=== PATIENT | female | born 1990 | race Caucasian/White ===

== ENCOUNTER 2025-03-28 09:22 | Outpatient (AMB) | payer BC, SELFPAY ==
--- NOTE | 2025-03-28 09:29 | OBCLNT_ITS ---
Vital Signs 03/28/25 09:48 Height 1.63 m Height Method Stated Weight 106.254 kg Weight Measurement Method Standing Scale BMI 40.1 BP 116/78 Blood Pressure Source Automatic Cuff Blood Pressure Location Left Upper Arm Position Sitting Respiration 16 Pulse 79 Pulse Source Monitor Temp 97.1 F Temp Source Oral Pulse Oximetry (%) 98 Oxygen Delivery Method Room Air Allergies/Home Meds Allergies & Medications Allergies NKA* Allergy (Uncoded 03/28/25 09:29) Medication Reconciliation ondansetron HCl 4 mg tablet 4 mg PO Q8H PRN nausea and vomiting #30 tabs 03/28/25 [Rx] vitamins 30 30 mg iron-10 mg iron-folic acid 1 mg-om3 capsule cap PO 03/28/25 [History Confirmed 03/28/25] Intake Visit Data Collection New Patient or Established: New Patient not seen in past 3 years at [facility] (considered New) Reason for Visit:: INITIAL CARE Seen by Clinical Staff ONLY (RN/MA): No 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: No Do You Feel Safe at Home: Yes Authorities Contacted: N/A PCP or OBGYN visit in last 3 months: Yes Hx Now: Yes Are you currently on any form of Control: No Last menstrual period: 01/09/25 Pain Present Currently: No Pain Scale Used: Champagne-Gustafson/Numerical Pain scale:: 0 Smoking Status Smoking Status: Never smoker Immunizations Flu Vaccine in the Last 12 Months: Yes Date of most recent flu vaccination: 01/18/25 Flu Vaccine Exclusion Criteria: Already Received Questionnaires Covid-19 Vaccine Questionnaire Has patient been vacinated for Covid-19 Have you been vacinated for Covid-19: No PHQ-9 PHQ-2 Over the last 2 weeks, how often have you been bothered by any of the following problems? 1. Little interest or pleasure in doing things: not at all 2. Feeling down, depressed, or hopeless: not at all Total score: 0 PHQ-9 3. Trouble falling or staying asleep, or sleeping too much: Not at all 4. Feeling tired or having little energy: Not at all 5. Poor appetite or overeating: Not at all 6. Feeling bad about yourself - or that you are a failure or have let yourself or your family down: Not at all 7. Trouble concentrating on things, such as reading the newspaper or watching television: Not at all 8. Moving or speaking so slowly that other people could have noticed? - Or the opposite - being so fidgety or restless that you have been moving around a lot more than usual: not at all 9. Thoughts that you would be better off or of hurting yourself in some way: Not at all Total score: 0 Source: Developed by Drs. Jesu Mishra, Josey Jackson, Miguel Nguyen and colleagues, with an educational yana from [employer]. Depression screen completed yes Social History Living Situation History Marital Status: Lives With: Family Housing: House Tobacco History Smoking Status: Never smoker Second Hand Smoke Exposure: No Alcohol History Alcohol Intake: Never Domestic Abuse History Do You Feel Safe at Home: Yes History of Present Illness HPI Narrative 35-year-old 3 para 2 for OBI. She has a last menstrual period January 09, 2025. This gives a due date of October 16, 2025. So she is 11 weeks and 1 day today. Her and her partner are here together and they are both very happy about the . Patient denies any health issues. She denies social habits and no surgeries. She is currently taking prenatals. She has some nausea. And she denies any SAB complaints. OB Initial Visit OB Flowsheet OB Flowsheet Initial Weight: Not Recorded Date -?-?--?-?-?-?-?-?-?-?-?-?- EGA Weight BP Alb Glu CTX Pres Fundal ht FHR Mov Dilation Station Effacement Hx Notes Visit Note 03/28/25 -?-?-?-?-?-?-?-?-?-?-?-?- 11w 1d 106.254 kg 116/78 absent unknown 11 145 absent 35-year-old 3 para 2 for OBI today. She is here with her and her family. They are happy about the and excited her last. January 09, 2025. This gives EDC of 06/18/2025. And she denies leaking bleeding or contractions. Schedule at [facility] for anatomy scan. Discussed SAB precautions. We did OB panels today with NIPT and carrier screens. Continue prenatals. I ordered Zofran 4 mg that she can take every 8 hours for the nausea and discussed comfort measures and return in 4 weeks OB check Menstrual History Menstrual reliability: definite Flow: normal Menstrual regularity: regular Monthly: Yes Age at menarche: 12 On control pills at conception: No Associated symptoms (LMP): Reports nausea OB History : 3 Para: 2 # of Living Children: 2 Delivery History 1st : Child's name: VIKAS date: 10/06/06 sex: female Gestational age at delivery (weeks): 40 Delivery type: vaginal Delivery complications: NONE History of depression before or after : No 2nd : Child's name: LEXA date: 03/06/12 sex: male Gestational age at delivery (weeks): 40 Delivery type: vaginal Delivery complications: NONE History of depression before or after : No Infection History & Risk Evaluation History of STDs: none Genetic Screening & History Genetic Screening/Teratology Counseling - Includes patient, baby's father, or anyone in either family with: 1. Patient's age 35 years or older as of estimated date of delivery: Yes 2. Thalassemia (Slovenian, Kuwaiti, Mediterranean, or Background); MCV less than 80: No 3. Neural Tube Defect (Meningomyelocele, Spina Bifida, or Anencephaly): No 4. Congenital Heart Defect: No 5. Down Syndrome: No 6. Pedro-Sachs (Ashkenazi Nondenominational, Cajun, Kiswahili Barry): No 7. Kathie Disease (Ashkenazi Nondenominational): No 8. Familial Dysautonomia (Ashkenazi Nondenominational): No 9. Sickle Cell Disease or Trait (): No 10. Hemophilia or other blood disorders: No 11. Muscular Dystrophy: No 12. Cystic Fibrosis: No 13. Whitley's Chorea: No 14. Mental Retardation/Autism: No 15. Other inherited genetic or chromosomal disorder: No 16. Maternal Metabolic Disorder (EG,TYPE 1 Diabetes, PKU): No 17. Patient or baby's father had a child with defects not listed above: No 18. Recurrent loss or a stillbirth: No 19. Medications (including supplements, vitamins, herbs or otc drugs)/illicit/recreational drugs/alcohol since last menstrual period: No 20. Any other: No Infection History 1. Live with someone with TB or exposed to TB: No 2. Rash or viral illness since last menstrual period: No 3. Hepatitis B,C: No Other (see comments) Source: [employer] Review of Systems Review of Systems Systems Reviewed: All systems reviewed, normal except as documented Gastrointestinal Gastrointestinal: Reports nausea Exam General Limitations: no limitations General Appearance: alert, in no apparent distress, comfortable, cooperative, healthy appearing, well developed and well groomed ENT ENT exam: Present normal exam, normal oropharynx and mucous membranes moist Neck Neck exam: Present normal inspection, full ROM and trachea midline Chest Chest inspection: Present normal inspection and symmetric chest wall rise Resp Respiratory exam: Present normal lung sounds bilaterally Card Cardiovascular exam: Present regular rate, normal rhythm and normal heart sounds Abdominal Abdominal exam: Present soft and normal bowel sounds Psych Psychiatric exam: Present normal affect and normal mood Office Procedures O[facility] Clinic LOC & Office Proc's Nursing/Assessment Patient Status: Initial/New Patient OB Clinic Nursing Assessment: Medication Reconciliation, Update PMH in EMR and Vital Signs OB Clinic Coordination of Care: AMA, Complex Care and Chronic Disease 1-5, Consent,records obtained, informed consent, Education Simp Pt/Fam, 1 Ins Authorization, Lab and Imaging orders, Results/Orders obtained and Staff clarify orders Special Needs: Heart tones New Patient Charge New Patient Point Assignment: [id number] 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 OB panel with NIPT, carrier screening A1c today. Discussed SAB precautions. Continue vitamins. Return in 4 weeks for OB Additional Plan Follow Up: 4 Weeks (obc)
[2025-03-28 09:48] VITALS: BP 116/78; PULSE 79; RESP 16; TEMP 36.2; O2SAT 98; BMI 40.1
== END 2025-03-28 10:42 | disposition home or self-care (01) ==
LOC: HODSOBC 09:22
PROVIDERS: Supervising Provider Advanced Practice Midwife; Visit Provider Advanced Practice Midwife
DX: O09.521 Supervision of elderly multigravida, first trimester (principal); Z3A.11 11 weeks gestation of pregnancy
CPT/HCPCS: 99205; G0463